=== PATIENT | female | born 1945 | race Caucasian/White ===

== ENCOUNTER 2017-09-13 12:00 | Inpatient (IN) | payer OTHER ==
[~2017-09-13] VITALS: Ht 167.6 cm; Wt 111.1 kg
[~2017-09-13 12:00] MED LIST: AMLODIPINE BESYL5 MG PO; ATACAND16 MG PO; ATACAND32 MG; CARTIA XT120 MG; CARdura 4MG TABLET PO; CLOPIDOGREL BIS75 MG PO; INTEGRA PLUS C1 EACH PO; LASIX40 MG PO; METOPROLOL TART50 MG PO; NEURONTIN300 MG PO; OMEPRAZOLE10 MG; PAROXETINE HCL10 MG PO; PAXIL30 MG; PEPCID40 MG; PLAVIX75 MG; TOPROL XL25 MG
[2017-09-28] MEDS ORDERED: LASIX40 MG PO (07:31)
[2017-09-28] MEDS ORDERED: LOSARTAN-HCTZ1 EAC2 PO (07:31)
[2017-09-28] MEDS ORDERED: AMLODIPINE BESYL5 MG PO (07:31)
[2017-09-28] MEDS ORDERED: XOPENEX0.63 MG/3 IH (07:31)
[2017-09-28] MEDS ORDERED: CARdura 4MG TABLET PO (07:31)
[2017-09-28] MEDS ORDERED: PEPCID20 MG PO (07:31)
== END 2017-09-28 17:18 | DRG 453 ==
LOC: O/R 09-20 05:15 → PED 09-20 05:15 → SURH 09-20 07:00 → PED 09-20 16:09 → ICU 09-21 18:23 → MEDI 09-26 17:16
PROVIDERS: Orthopaedic Surgery Orthopaedic Surgery of the Spine
PROC: 0SG0071 Fusion of Lumbar Vertebral Joint with Autologous Tissue Substitute, Posterior Approach, Posterior Column, Open Approach (ICD-10-PCS; 2017-09-20)
PROC: 0SG00A0 Fusion of Lumbar Vertebral Joint with Interbody Fusion Device, Anterior Approach, Anterior Column, Open Approach (ICD-10-PCS; 2017-09-20)
PROC: 0ST20ZZ Resection of Lumbar Vertebral Disc, Open Approach (ICD-10-PCS; 2017-09-20)
PROC: 07DS3ZZ Extraction of Vertebral Bone Marrow, Percutaneous Approach (ICD-10-PCS; 2017-09-20)
PROC: 0SG00AJ Fusion of Lumbar Vertebral Joint with Interbody Fusion Device, Posterior Approach, Anterior Column, Open Approach (ICD-10-PCS; principal; 2017-09-20 07:00)
PROC: 3E0F7GC Introduction of Other Therapeutic Substance into Respiratory Tract, Via Natural or Artificial Opening (ICD-10-PCS; 2017-09-21)
PROC: 4A033R1 Measurement of Arterial Saturation, Peripheral, Percutaneous Approach (ICD-10-PCS; 2017-09-21)
PROC: 5A09457 Assistance with Respiratory Ventilation, 24-96 Consecutive Hours, Continuous Positive Airway Pressure (ICD-10-PCS; 2017-09-21)
PROC: B246ZZZ Ultrasonography of Right and Left Heart (ICD-10-PCS; 2017-09-23)
PROC: 4A12X4Z Monitoring of Cardiac Electrical Activity, External Approach (ICD-10-PCS; 2017-09-26)
DX: M48.061 Spinal stenosis, lumbar region without neurogenic claudication (principal); J95.821 Acute postprocedural respiratory failure; I50.33 Acute on chronic diastolic (congestive) heart failure; M51.06 Intervertebral disc disorders with myelopathy, lumbar region; I97.131 Postprocedural heart failure following other surgery; N39.0 Urinary tract infection, site not specified; M43.16 Spondylolisthesis, lumbar region; I25.10 Atherosclerotic heart disease of native coronary artery without angina pectoris; E66.8 Other obesity; J20.9 Acute bronchitis, unspecified; I10 Essential (primary) hypertension; D64.89 Other specified anemias

== ENCOUNTER 2017-10-04 14:16 | Emergency (ER) | payer OTHER ==
[~2017-10-04] VITALS: Ht 167.6 cm; Wt 113.4 kg
[~2017-10-04 14:16] MED LIST changes: +LOSARTAN-HCTZ1 EAC2 PO; +PEPCID20 MG PO; +XOPENEX0.63 MG/3 IH
== END 2017-10-05 14:25 | disposition designated cancer center or children's hospital (05) ==
LOC: ER 14:16
DX: D50.0 Iron deficiency anemia secondary to blood loss (chronic) (principal); Z98.890 Other specified postprocedural states

== ENCOUNTER 2020-05-01 08:00 | Outpatient (CLI) | payer OTHER | END 2020-05-01 08:02 | disposition home or self-care (01) | LOC: RX STUDY 08:00 | PROVIDERS: ATTEND Surgery | DX: K21.9 Gastro-esophageal reflux disease without esophagitis (principal) ==

== ENCOUNTER 2021-02-10 16:31 | Inpatient (IN) | payer OTHER ==
[~2021-02-10] VITALS: Ht 162.6 cm; Wt 113.4 kg
--- NOTE | 2021-02-10 16:49 | NUR ---
PTE ALERTA Y ORIENTADA X3, PTE REFIERE QUE HOY PRESENTO DEBILIDAD Y MAREO. PTE REFIERE SE REALIZO CBC EN LA MANANA Y LA HEMOGLOBINA SE ENCUENTRA EN 7.90. SE LE REALIZA EKG Y SE LE PRESENTA A . SE UBICA PTE EN RADHA.
--- NOTE | 2021-02-10 17:30 | NUR ---
EVALUA PTE. SE EDUCA A PTE SOBRE [place] MEDICO. PTE REFIERE COMPRENDER. SE REALIZAN MUESTRAS DE LABORATORIO BAJO MEDIDAS ASEPTICAS. SE ADMINISTRA IV'S COLIN ORDEN MEDICA. SE NOTIFICA A [facility] DOS UNIDADES DE PRBC A DE SERVICIOS [facility].
--- NOTE | 2021-02-10 22:46 | NUR ---
SE LLAMA A [facility] DE [facility] Y MS.BAUZO INDICA QUE LOS TUBOS PILOTOS NO TAFOYA LLEGADO TODAVIA. LA MISMA INDICA QUE ENVIARAN FALGUNI CERTIFICACION PARA VERIFICACION DE NOMBRE DE PTE YA QUE LA MISMA EN EL RECORD QUE TIENE EN [facility] EL NOMBRE NO TIENE H. INDICAN QUE DEVOLVERAN LA LLAMADA CUANDO TUBOS PILOTOS LLEGUEN A [facility].
--- NOTE | 2021-02-10 23:09 | NUR ---
11:00AM SE RECIBE PACIENTE FEMINA DE 75 ANOS DE EDAD QUE LLEGA A EASTON DE EMEGRENCIAS UBICADA EN RADHA KRIS 8 CUAL TIENE ORDEN DE 2 [facility]ES DE [facility] IN [facility]. 11:08AM SE REALIZA LLAMADA A [facility] Y SE LOGRA CONTACTO CON [facility]. NATH CUAL NOTIFICA QUE AUN NO TAFOYA LLEGADO LOS TUBOS PILOTOS Y QUE CUANDO LLEGUE REALIZARAN FALGUNI LLAMADA NUEVAMENTE NO LA INTENCION DE ENVIAR POR FAX UN DOCUMENTO NECESARIO PARA COROBORACION DE NOMBRE DE PACIENTE YA QUE EN SISTEMA DE [facility] EL NOMBRE DE LA PACIENTE HILIA APARECE SIN H EN SARGENT SISTEMA. SE MANTIENE A PACIENTE EN AREA DE OBSERVACION OPOR CAMBIOS EN CONDICION Y EN ESPERA DE EVALUACION DE MEDICINA INTERNA. PACIENTE REFIERE SARGENT NOMBRE ESTA TAMIE ESCRITO EN INFORMACION DE SISTEMA DEL HOSPITAL. SE PACIENTE AL MOMENTO SE ENCUENTRA ALERTA, CONCIENTE Y ORIENTADA X3.
--- NOTE | 2021-02-10 23:59 | NUR ---
12SE RECIBE DOCUMENTO DE [facility] DE CERTIFICACION DDE IDENTIDAD DE PACIENTE RE LLENA EL MISMO Y SE ENVIA A [facility] A SENOR CUADRA CUAL REFIERE RECIBIO LA CERTIFICACION POR FAX. SE NOTIFICO ADEMAS A KELSIE. BLADE QUE LAS UNIDADES TIENE ORDEN DE HOLD Y EL MISMO REFIERE ROMINA NOTA.
--- NOTE | 2021-02-11 00:16 | NUR ---
23:59 . [facility] NOTIFICA QUE NO ES NECESARIO ENVIAR ID DE PACIENTE NI PLAN MEDICO PARA COROBORAR IDENTIDAD DE PACIENTE.
[2021-02-12] MEDS ORDERED: INTEGRA CAPSUL1 EACH PO (11:41)
== END 2021-02-12 14:00 | disposition home or self-care (01) | DRG 812 ==
LOC: ER 16:31 → MEDI 02-11 00:37
PROVIDERS: ADMIT Internal Medicine; ATTEND Internal Medicine
PROC: 30233N1 Transfusion of Nonautologous Red Blood Cells into Peripheral Vein, Percutaneous Approach (ICD-10-PCS; principal; 2021-02-11)
DX: D64.9 Anemia, unspecified (principal); D50.8 Other iron deficiency anemias; R53.81 Other malaise; I11.9 Hypertensive heart disease without heart failure; I25.10 Atherosclerotic heart disease of native coronary artery without angina pectoris; E66.9 Obesity, unspecified; Z20.822 Contact with and (suspected) exposure to COVID-19

== ENCOUNTER 2023-02-24 10:04 | Emergency (ER) | payer OTHER ==
[~2023-02-24] VITALS: Ht 162.6 cm; Wt 117.9 kg
[~2023-02-24 10:04] MED LIST changes: +INTEGRA CAPSUL1 EACH PO
[2023-02-24] MEDS ORDERED: DOXAZOSIN MESYLA1 MG PO (10:19)
[2023-02-24] MEDS ORDERED: HYDRALAZINE HCL25 MG PO (10:20)
[2023-02-24] MEDS ORDERED: OMEPRAZOLE-BIC1 EAC1 PO (10:20)
== END 2023-02-24 14:28 | disposition home or self-care (01) ==
LOC: ER 10:04
DX: L03.116 Cellulitis of left lower limb (principal); L03.115 Cellulitis of right lower limb

== ENCOUNTER 2023-06-25 15:13 | Emergency (ER) | payer OTHER ==
[~2023-06-25] VITALS: Ht 162.6 cm; Wt 113.4 kg
[~2023-06-25 15:13] MED LIST changes: +DOXAZOSIN MESYLA1 MG PO; +HYDRALAZINE HCL25 MG PO; +OMEPRAZOLE-BIC1 EAC1 PO
[2023-06-25 17:51] LABS: HEMATOCRIT 31.7 % (36.0-45.00); HEMOGLOBIN 10.4 g/dL (12.0-15.00); MEAN CELL VOLUME 86.3 fL (80.00-100.00); MEAN CORPUSCULAR HEMOGLOBIN 28.2 pg (27.00-32.0); MEAN CORPUSCULAR HGB CONC 32.7 g/dl (32.0-36.0); PLATELET COUNT 210 K/uL (150-450); RED BLOOD COUNT 3.67 M/uL (4.00-6.00); RED CELL DISTRIBUTION WIDTH 15.7 % (11.5-14.5)
[2023-06-25] MEDS ORDERED: ZITHROMAX500 MG PO (18:16)
[2023-06-25] MEDS ORDERED: MEDROLPACK PO (18:16)
== END 2023-06-25 19:57 | disposition home or self-care (01) ==
LOC: ER 15:14
PROVIDERS: General Practice
DX: J20.9 Acute bronchitis, unspecified (principal); R06.02 Shortness of breath; I10 Essential (primary) hypertension; J45.909 Unspecified asthma, uncomplicated; E78.49 Other hyperlipidemia; R05.8 Other specified cough; K44.9 Diaphragmatic hernia without obstruction or gangrene; I51.7 Cardiomegaly
CPT/HCPCS: 36415; 71046; 94640; 96365; 99284; J2920